=== PATIENT | male | born 1960 | race Caucasian/White ===

== ENCOUNTER → 2019-04-27 | Emergency (ER) | payer SELFPAY ==
[2019-04-28] MEDS: IBUPROFEN 600 MG TAB PO (00:11)
[2019-04-28] MEDS: LIDOCAINE 1% (MDV) 20 ML INJ SC (00:19)
[2019-04-28] MEDS: DIPHTH/TET/ACEL PERTUSS (ADULT) 0.5 ML VIAL IM* (00:19)
== END | disposition home or self-care (01) ==
LOC: E/R 21:33
DX: S01.01XA Laceration without foreign body of scalp, initial encounter (principal); I10 Essential (primary) hypertension; W26.0XXA Contact with knife, initial encounter; Y92.9 Unspecified place or not applicable; Z23 Encounter for immunization
CPT/HCPCS: 12002; 90471; 90715; 99283-25